=== PATIENT | female | born 1940 | race Caucasian/White ===

== ENCOUNTER 2017-08-27 00:50 | Inpatient (IN) | payer OTHER ==
[2017-08-27 00:59] LABS: ADD MAN DIFF? NO
[2017-08-27 01:06] LABS: ABNORMAL IP MESSAGE 1; BASOPHIL # 0.1 10^3/ul (0.0-0.1); BASOPHILS % 0.6 % (0.0-2.0); EOSINOPHILS # 0.1 10^3/ul (0.0-0.5); EOSINOPHILS % 0.6 % (0.0-7.0); HEMATOCRIT 33.6 % (37.0-47.0); HEMOGLOBIN 11.1 g/dl (12.0-16.0); LYMPHOCYTES # 8.9 10^3/ul (0.8-2.9); LYMPHOCYTES % 66.3 % (15.0-51.0); MEAN CORPUSCULAR HEMOGLOBIN 32.2 pg (29.0-33.0); MEAN CORPUSCULAR VOLUME 97.4 fl (82.0-101.0); MEAN PLATELET VOLUME 10.1 fl (7.4-10.4); MONOCYTE # 0.7 10^3/ul (0.3-0.9); MONOCYTES % 5.2 % (0.0-11.0); NEUTROPHIL # 3.6 10^3/ul (1.6-7.5); NEUTROPHILS % 27.1 % (39.0-77.0); PLATELET COUNT 261 10^3/UL (140-415); RED BLOOD COUNT 3.45 10^6/ul (4.20-5.40); RED CELL DISTRIBUTION WIDTH 13.7 % (11.5-14.5)
[2017-08-27 01:06] LABS: WHITE BLOOD COUNT 13.4 10^3/ul (4.8-10.8)
[2017-08-27 01:09] LABS: POSITIVE DIFF @See below
[2017-08-27] MEDS: ONDANSETRON 4 MG INJ IV (01:18)
[2017-08-27] MEDS ORDERED: LIDOCAINE 1% (MDV) 20 ML INJ (01:18)
[2017-08-27] MEDS: ASPIRIN 81 MG TAB PO (01:18)
[2017-08-27] MEDS: SOD CHLORIDE 0.9% 1,000 ML IV ×2 (01:18→04:58)
[2017-08-27] MEDS: HEPARIN 1000 UNITS/ML 10 ML INJ IV (01:18)
[2017-08-27] MEDS ORDERED: MIDAZOLAM 1 MG/ML 2 ML INJ (01:19)
[2017-08-27] MEDS ORDERED: FENTAnyl 50 MCG/ML VIAL (01:19)
[2017-08-27 01:22] LABS: ANION GAP 16 (8-16); BLOOD UREA NITROGEN 14 mg/dl (7-20); CALCIUM 9.1 mg/dl (8.4-10.2); CARBON DIOXIDE 23 mmol/L (21-31); CHLORIDE 105 mmol/L (97-110); CREATININE 0.75 mg/dl (0.44-1.00); GLUCOSE 138 mg/dl (70-220); LIPASE 74 U/L (23-300); POTASSIUM 3.7 mmol/L (3.5-5.1); SODIUM 140 mmol/L (135-144)
[2017-08-27 01:34] LABS: B-TYPE NATRIURETIC PEPTIDE 151 PG/ML (0-450); TROPONIN-I 0.015 ng/ml (0.00-0.12)
[2017-08-27] MEDS ORDERED: BIVALIRUDIN 250MG /NS 50 ML 50 ML IVPB ×2 (01:39→02:16)
[2017-08-27] MEDS ORDERED: PRASUGREL HYDROCHLORIDE 10 MG TABLET PO (01:45)
[2017-08-27] MEDS ORDERED: VERAPAMIL 5 MG INJ (01:49)
[2017-08-27] MEDS: BIVALIRUDIN 250 MG in SOD CHLORIDE 0.9% 500 ML IV (02:30)
[2017-08-27] MEDS ORDERED: AL HYDROX/MG HYDROX/SIMETH 30 ML CUP PO (02:30)
[2017-08-27] MEDS ORDERED: ONDANSETRON 4 MG INJ IV (02:30)
[2017-08-27] MEDS ORDERED: NITROGLYCERIN (SL) 0.4 MG TAB SL (02:30)
[2017-08-27 02:31] LABS: ALANINE AMINOTRANSFERASE 17 IU/L (13-69); ALBUMIN 4.1 g/dl (3.3-4.9); ALKALINE PHOSPHATASE 97 IU/L (42-121); ASPARTATE AMINO TRANSFERASE 25 IU/L (15-46); BILIRUBIN,INDIRECT 0.1 mg/dl (0-1.1); BILIRUBIN,TOTAL 0.1 mg/dl (0.2-1.3); TOTAL PROTEIN 7.4 g/dl (6.1-8.1)
[2017-08-27] MEDS ORDERED: ATROPINE 1 MG/10 ML SYRINGE (06:01)
[2017-08-27 07:27] LABS: CREATINE KINASE 1303 IU/L (23-200)
[2017-08-27 07:36] LABS: CK INDEX 5.1
[2017-08-27 08:11] LABS: CHOLESTEROL 218 mg/dl (100-200)
[2017-08-27 08:11] LABS: ANION GAP 12 (8-16); BLOOD UREA NITROGEN 11 mg/dl (7-20); CALCIUM 8.6 mg/dl (8.4-10.2); CARBON DIOXIDE 23 mmol/L (21-31); CHLORIDE 107 mmol/L (97-110); CHOL/HDL RATIO 5.5 RATIO; CREATININE 0.57 mg/dl (0.44-1.00); GLUCOSE 113 mg/dl (70-220); HDL CHOLESTEROL 39 mg/dl (33-92); LDL CHOLESTEROL,CALCULATED 134 mg/dl; POTASSIUM 4.4 mmol/L (3.5-5.1); SODIUM 138 mmol/L (135-144); TRIGLYCERIDES 225 mg/dl (0-149)
[2017-08-27] MEDS: ATENOLOL 25 MG TAB PO (08:14)
[2017-08-27] MEDS: ASPIRIN (EC) 81 MG TAB PO (08:15)
[2017-08-27] MEDS: FAMOTIDINE 20 MG TAB PO ×2 (08:15→21:43)
[2017-08-27] MEDS: LEVOTHYROXINE 50 MCG TAB PO (08:15)
[2017-08-27] MEDS: DOCUSATE SODIUM 100 MG CAP PO ×2 (08:16→21:00)
[2017-08-27 08:39] LABS: HEMOGLOBIN A1C 5.5 % (0-5.9)
[2017-08-27 09:01] LABS: FREE T3 5.06 pg/ml (2.77-5.27); FREE T4 (FREE THYROXINE) 0.74 ng/dl (0.78-2.44)
[2017-08-27] MEDS: morphine 2 MG INJ IV (09:39)
[2017-08-27] MEDS: DEXTROSE 5%-0.9% NACL 1,000 ML IV (17:47)
[2017-08-27] MEDS: LORATADINE 10 MG TAB PO (18:47)
[2017-08-27] MEDS: FLUTICASONE 0.05% 16 GM NAS SPRAY NASAL (18:50)
[2017-08-27] MEDS: OXYMETAZOLINE 0.05% 15 ML NAS SPRAY NASAL (18:50)
[2017-08-27] MEDS: ATORVASTATIN 80 MG TAB PO (21:43)
[2017-08-27] MEDS: OXYCODONE/ACETAMINOPHEN (5/325) TAB PO (21:44)
[2017-08-27] MEDS: PRASUGREL HYDROCHLORIDE 10 MG TABLET PO (21:53)
[2017-08-28] MEDS ORDERED: DEXTROSE 5%-0.9% NACL 1,000 ML IV (01:00)
[2017-08-28 05:10] LABS: ADD MAN DIFF? NO
[2017-08-28 05:14] LABS: BASOPHIL # 0.1 10^3/ul (0.0-0.1); BASOPHILS % 0.6 % (0.0-2.0); EOSINOPHILS % 0.2 % (0.0-7.0); HEMATOCRIT 29.1 % (37.0-47.0); HEMOGLOBIN 9.4 g/dl (12.0-16.0); LYMPHOCYTES % 41.6 % (15.0-51.0); MEAN CORPUSCULAR HEMOGLOBIN 32.2 pg (29.0-33.0); MEAN CORPUSCULAR HGB CONC 32.3 g/dl (32.0-37.0); MEAN CORPUSCULAR VOLUME 99.7 fl (82.0-101.0); MEAN PLATELET VOLUME 10.1 fl (7.4-10.4); MONOCYTE # 0.9 10^3/ul (0.3-0.9); MONOCYTES % 9.1 % (0.0-11.0); NEUTROPHIL # 4.6 10^3/ul (1.6-7.5); NEUTROPHILS % 48.2 % (39.0-77.0); PLATELET COUNT 196 10^3/UL (140-415); RED BLOOD COUNT 2.92 10^6/ul (4.20-5.40); RED CELL DISTRIBUTION WIDTH 13.7 % (11.5-14.5)
[2017-08-28 05:14] LABS: WHITE BLOOD COUNT 9.5 10^3/ul (4.8-10.8)
[2017-08-28 05:31] LABS: CREATINE KINASE 743 IU/L (23-200)
[2017-08-28 05:42] LABS: B-TYPE NATRIURETIC PEPTIDE 2170 PG/ML (0-450)
[2017-08-28 05:44] LABS: CK INDEX 2.1
[2017-08-28 05:45] LABS: ALANINE AMINOTRANSFERASE 27 IU/L (13-69); ALBUMIN 3.1 g/dl (3.3-4.9); ALKALINE PHOSPHATASE 61 IU/L (42-121); ANION GAP 12 (8-16); ASPARTATE AMINO TRANSFERASE 111 IU/L (15-46); BILIRUBIN,INDIRECT 0.4 mg/dl (0-1.1); BILIRUBIN,TOTAL 0.4 mg/dl (0.2-1.3); BLOOD UREA NITROGEN 12 mg/dl (7-20); CALCIUM 8.3 mg/dl (8.4-10.2); CARBON DIOXIDE 24 mmol/L (21-31); CHLORIDE 108 mmol/L (97-110); CREATININE 0.65 mg/dl (0.44-1.00); GLUCOSE 108 mg/dl (70-220); MAGNESIUM 1.8 mg/dl (1.7-2.5); POTASSIUM 3.9 mmol/L (3.5-5.1); SODIUM 140 mmol/L (135-144); TOTAL PROTEIN 5.9 g/dl (6.1-8.1)
[2017-08-28 05:52] LABS: FREE T4 (FREE THYROXINE) 0.69 ng/dl (0.78-2.44)
[2017-08-28] MEDS: LORATADINE 10 MG TAB PO (06:35)
[2017-08-28] MEDS: ATENOLOL 25 MG TAB PO (08:07)
[2017-08-28] MEDS: FAMOTIDINE 20 MG TAB PO ×2 (08:41→20:23)
[2017-08-28] MEDS: ASPIRIN (EC) 81 MG TAB PO (08:41)
[2017-08-28] MEDS: FLUTICASONE 0.05% 16 GM NAS SPRAY NASAL ×2 (08:41→20:23)
[2017-08-28] MEDS: DEXTROSE 5%-0.9% NACL 1,000 ML IV (08:42)
[2017-08-28] MEDS: DOCUSATE SODIUM 100 MG CAP PO ×2 (08:42→20:23)
[2017-08-28] MEDS: ACETAMINOPHEN 325 MG TAB PO (14:07)
[2017-08-28] MEDS: THYROID 60 MG TAB PO (14:53)
[2017-08-28] MEDS: ATORVASTATIN 80 MG TAB PO (20:23)
[2017-08-28] MEDS: PRASUGREL HYDROCHLORIDE 10 MG TABLET PO (20:23)
== END 2017-08-28 20:35 | disposition short-term general hospital (02) | DRG 247 ==
LOC: E/R 00:50 → CCL 01:25 → ICU 01:25 → CCL 02:03 → REC 01:26 → ICU 02:36
PROC: 027035Z Dilation of Coronary Artery, One Artery with Two Drug-eluting Intraluminal Devices, Percutaneous Approach (ICD-10-PCS; principal; 2017-08-27 01:00)
PROC: 4A023N7 Measurement of Cardiac Sampling and Pressure, Left Heart, Percutaneous Approach (ICD-10-PCS; 2017-08-27 01:00)
PROC: B211YZZ Fluoroscopy of Multiple Coronary Arteries using Other Contrast (ICD-10-PCS; 2017-08-27 01:00)
PROC: 4A033BC Measurement of Arterial Pressure, Coronary, Percutaneous Approach (ICD-10-PCS; 2017-08-27 01:00)
DX: I21.19 ST elevation (STEMI) myocardial infarction involving other coronary artery of inferior wall (principal); I95.9 Hypotension, unspecified; I10 Essential (primary) hypertension; I25.10 Atherosclerotic heart disease of native coronary artery without angina pectoris; F17.200 Nicotine dependence, unspecified, uncomplicated; R00.1 Bradycardia, unspecified; E03.9 Hypothyroidism, unspecified; Z86.73 Personal history of transient ischemic attack (TIA), and cerebral infarction without residual deficits
CPT/HCPCS: 71045; 80048; 80053; 80061; 80076; 82550; 82553; 83036; 83690; 83735; 83880; 84439; 84443; 84481; 84484; 85025; 87081; 93005; 93306; 93458